=== PATIENT | male | born 1955 | race Caucasian/White ===

== ENCOUNTER 2017-04-16 17:39 | Inpatient (IN) | payer OTHER ==
[~2017-04-16] VITALS: Ht 170.2 cm; Wt 79.8 kg
--- NOTE | 2017-04-16 17:40 | NUR ---
AAOX3, BIB DAUGHTER C/O GENERALIZED WEAKNESS, LOW HGB 7.6, LOSS OF APPETITE, LAST CHEMO WAS 3 WEEKS AGO. 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 SKIN IS WARM AND DRY. PATIENT REFUSED TO USE WHEELCHAIR AND AMBULATES TO ER BED [address]IT[address] JC AT FOR EVAL.
[2017-04-16] MEDS ORDERED: ACETAMINOPHEN ES 500 MG TABLET ONE (18:28)
[2017-04-16] MEDS ORDERED: IV NS 0.9% 500 ML BAG IV ONE ×2 (18:30→20:00)
[2017-04-16] MEDS ORDERED: ACETAMINOPHEN ES 500 MG TABLET PO ONE (18:30)
[2017-04-16 18:34] LABS: BASOPHILS % (AUTO) 0.5 % (0.0-2.0); EOSINOPHILS % (AUTO) 0.2 % (0.0-6.0); HEMATOCRIT 23 % (39-51); HEMOGLOBIN 7.5 g/dL (13.5-17.5); LYMPHOCYTES # (AUTO) 1.2 /CMM (0.8-4.8); LYMPHOCYTES % (AUTO) 18.2 % (20.0-44.0); MEAN CORPUSCULAR HEMOGLOBIN 29 PG (26.0-33.0); MEAN CORPUSCULAR HGB CONC 33 g/dl (31.0-36.0); MEAN CORPUSCULAR VOLUME 88 fL (80-96); MONOCYTES # (AUTO) 1.1 /CMM (0.1-1.30); MONOCYTES % (AUTO) 16.5 % (2.0-12.0); NEUTROPHILS # (AUTO) 4.5 /CMM (1.8-8.9); NEUTROPHILS % (AUTO) 64.6 % (43.0-81.0); PLATELET COUNT (AUTO) 461 /CMM (150-450); RDW COEFFICIENT OF VARIATION 16.3 (11.5-15.0); RED BLOOD CELL COUNT(AUTO) 2.63 MIL/uL (4.5-6.0); WHITE BLOOD COUNT (AUTO) 6.8 K/uL (4.3-11.0)
--- NOTE | 2017-04-16 18:35 | NUR ---
NEW IV STARTED ON RAC, 18 G. BLOOD DRAWN AND SENT TO LAB.
[2017-04-16 18:44] LABS: CALCIUM, SERUM 8.6 mg/dL (8.5-10.1); CARBON DIOXIDE 25 mmol/L (21-32); CHLORIDE 95 mmol/L (98-107); GLUCOSE 175 mg/dL (74-106); SODIUM SERUM 131 mmol/L (136-145); UREA NITROGEN, BLOOD 13 mg/dL (7-18)
[2017-04-16 18:50] LABS: ALANINE AMINOTRANSFERASE 30 U/L (12-78); ALBUMIN 2.2 g/dL (3.4-5.0); ALKALINE PHOSPHATASE 84 U/L (46-116); ASPARTATE AMINOTRANSFERASE 41 U/L (15-37); BILIRUBIN,DIRECT 0.1 mg/dL (0.0-0.2); BILIRUBIN,TOTAL 0.4 mg/dL (0.2-1.0); TOTAL PROTEIN, SERUM 7.1 g/dL (6.4-8.2)
[2017-04-16 18:52] LABS: TROPONIN I < 0.017 ng/mL (0.00-0.056)
[2017-04-16 18:57] LABS: INR 1.13 (0.87-1.13); PROTHROMBIN TIME 11.9 SECS (9.5-12.7)
--- NOTE | 2017-04-16 19:05 | NUR ---
LACTIC ACID 2.7, DR. JC MADE AWARE.
--- NOTE | 2017-04-16 19:15 | NUR ---
URINE OBTAINED AND SENT TO LAB.
--- NOTE | 2017-04-16 19:20 | NUR ---
ENDDORSED TO GRACIA MARCELO FOR MARIO.
[2017-04-16] MEDS ORDERED: PIPERACILLIN /TAZOBACTAM 3.375 G VIAL IV ONE (19:26)
[2017-04-16] MEDS ORDERED: IV NS 0.9% 1,000 ML BAG IV ONE ×2 (19:30→20:00)
[2017-04-16] MEDS ORDERED: PIPERACILLIN /TAZOBACTAM 3.375 G in IV D5W 50 ML IV ONE (19:30)
[2017-04-16 19:33] LABS: APPEARANCE,URINE Clear (CLEAR); BILIRUBIN,URINE Negative (NEGATIVE); BLOOD, URINE Moderate Ery/uL (NEGATIVE); COLOR,URINE Yellow (YELLOW); KETONES,URINE Negative (NEGATIVE); LEUKOCYTE ESTERASE ,URINE Negative (NEGATIVE); NITRITE, URINE Negative (NEGATIVE); PH,URINE 5.5 (5.0-8.0); PROTEIN,URINE >=300 mg/dl (NEGATIVE); UGLUCOSE Negative (NEGATIVE)
--- NOTE | 2017-04-16 19:38 | NUR ---
MEDICATED PT ORDERED
[2017-04-16 19:45] LABS: BACTERIA,URINE Few /HPF (None Seen); WBC,URINE 0-2 /HPF (0-3)
[2017-04-16 19:46] LABS: FINE GRANULAR CASTS,URINE Few /LPF (None Seen); MUCUS,URINE Many /LPF (None Seen); URINE AMORPHOUS URATE Moderate /HPF (None Seen)
[2017-04-16 20:00] VITALS: BP 100/54
--- NOTE | 2017-04-16 20:05 | NUR ---
REPORT GIVEN TO DANUTA
[2017-04-16 21:00] VITALS: BP 100/54
--- NOTE | 2017-04-16 21:00 | NUR ---
RN NOTES NEW ADMISSION FROM ER, MALE, ADMITTED TO TELE WITH DX OF SEPSIS ON UNK ETIOLOGY AND SECONDARY DX OF POSSIBLE DIARRHEAL ILLNESS. ALERT AND ORIENTED X4, NO SOB, NO DISTRESS, LUNG SOUNDS ARE CLEAR, DENIES ANY PAIN AT THIS TIME, ABDOMEN SOFT AND NON-TENDER, ACTIVE BOWEL SOUNDS, RIGHT AC #20 PERIPHERAL LINE IS PATENT AND INTACT. CONTINUED NS BOLUS INFUSION. MALDIVIAN SPEAKING, DAUGHTER TRANSLATES. HAS HX OF LUNG CANCER STAGE 4, METASTASIS TO LEFT ILIAC BONE, PER DAUGHTER PATIENT AWARE WITH DX BUT NOT AWARE OF STAGE 4. DAUGHTER REQUESTED DO NOT DISCLOSE TO PATIENT THE STAGE. HAD WATERY DIARRHEA X5 AT HOME, TOOK IMMODIUM, NO DIARRHEA EPISODE BEFORE GOING TO THE ED. AMBULATES WITH UNSTEADY GAIT, REQUIRES ONE PERSON ASSIST. CONTINENT OF BOWEL AND BLADDER. ORIENTED TO ROOM AND USE OF CALL LIGHT, NEEDS ATTENDED, CALL LIGHT WITHIN REACH, DAUGHTER AT THE BEDSIDE.
--- NOTE | 2017-04-16 21:04 | NUR ---
PT TRANSPORTED TO TELE BED BY RN WITHOUT INCIDENT
[2017-04-16 21:13] LABS: SQUAMOUS EPITHELIAL CELL,UR Moderate /HPF (None Seen)
[2017-04-16] MEDS ORDERED: MAGNESIUM HYDROXIDE 30 ML UDC PO PRN (21:30)
[2017-04-16] MEDS ORDERED: Z GUARD REMEDY 2 OZ OINT TP PRN (21:30)
[2017-04-16] MEDS ORDERED: ACETAMINOPHEN 325 MG TABLET PO PRN (21:30)
[2017-04-16] MEDS ORDERED: MORPHINE SULFATE INJ 2 MG/ML DISP.SYRIN IV PRN (21:30)
[2017-04-16] MEDS ORDERED: HYDROCODONE/APAP 5/325MG 1 EACH TABLET PO PRN (21:30)
[2017-04-16] MEDS ORDERED: DEXTROSE 50%-WATER 50 ML DISP.SYRIN IV PRN (21:30)
[2017-04-16] MEDS ORDERED: ONDANSETRON HCL/PF 4 MG/2 ML VIAL IVP PRN (21:30)
[2017-04-16] MEDS ORDERED: ZOLPIDEM TARTRATE 5 MG TABLET PO PRN (21:30)
[2017-04-16] MEDS ORDERED: MAG HYDROX/AL HYDROX/SIMETH 30 ML UDC PO PRN (21:30)
--- NOTE | 2017-04-16 21:30 | NUR ---
RN NOTES SEEN BY SHANIKA THAKKAR, NO ORDER OF DEXAMETHASONE AT THIS TIME
[2017-04-16] MEDS ORDERED: VANCOMYCIN 1 GM VIAL ONE (21:56)
[2017-04-16] MEDS ORDERED: ENOXAPARIN SODIUM 40 MG/0.4 ML DISP.SYRIN SQ ONE (21:56)
[2017-04-16] MEDS ORDERED: VANCOMYCIN 1 GM in IV D5W 250 ML IV ONE (22:00)
[2017-04-16] MEDS ORDERED: INSULIN REGULAR, HUMAN 100 UNIT/ML 3 ML VIAL ONE (22:10)
[2017-04-16] MEDS: BLOOD SUGAR DIAGNOSTIC 1 EACH STRIP IN SCH (22:11)
[2017-04-16] MEDS: ENOXAPARIN SODIUM 40 MG/0.4 ML DISP.SYRIN SQ SCH (22:38)
[2017-04-16] MEDS: INSULIN REGULAR, HUMAN 100 UNIT/ML 3 ML VIAL SQ PRN (22:39)
[2017-04-16] MEDS: IV NS 0.9% 1,000 ML IV PRN (22:40)
--- NOTE | 2017-04-17 | NUR ---
RN NOTES DAUGHTER REFUSED V/S AT 00:00, PER DAUGHTER, PATIENT JUST FALLEN ASLEEP. EXPLAINED TO DAUGHTER NEED TEMPERATURE TAKEN IF NOT BP, DAUGHTER AGREED. TEMP 98.5F
[2017-04-17] MEDS ORDERED: PIPERACILLIN /TAZOBACTAM 3.375 G VIAL IV ONE ×2 (00:41→04:27)
[2017-04-17] MEDS: PIPERACILLIN /TAZOBACTAM 3.375 G in IV D5W 50 ML IV SCH ×4 (01:04→18:25)
[2017-04-17 04:00] VITALS: BP 112/62
[2017-04-17] MEDS ORDERED: ACETAMINOPHEN 325 MG TABLET ONE (05:52)
[2017-04-17] MEDS ORDERED: MORPHINE SULFATE INJ 4 MG/ML DISP.SYRIN ONE (05:54)
--- NOTE | 2017-04-17 06:08 | NUR ---
RN NOTES COMPLAINING OF PAIN OF 10/10 TO LEFT LEG, GIVEN MORPHINE 4 MG IVP, TEMPERATURE IS 100.2F, GIVEN TYLENOL 650 MG PO, COOLING MEASURES PROVIDED. WILL CONTINUE TO MONITOR
[2017-04-17] MEDS: BLOOD SUGAR DIAGNOSTIC 1 EACH STRIP IN SCH ×4 (06:38→21:21)
[2017-04-17] MEDS: INSULIN REGULAR, HUMAN 100 UNIT/ML 3 ML VIAL SQ PRN ×4 (06:43→21:36)
--- NOTE | 2017-04-17 06:44 | NUR ---
RN NOTES ACCUCHECK 120 MG/DL, INSULIN HELD
[2017-04-17 06:56] LABS: BASOPHILS % (AUTO) 0.2 % (0.0-2.0); EOSINOPHILS # (AUTO) 0.1 /CMM (0.0-0.7); EOSINOPHILS % (AUTO) 1.1 % (0.0-6.0); HEMATOCRIT 21 % (39-51); HEMOGLOBIN 7.3 g/dL (13.5-17.5); LYMPHOCYTES # (AUTO) 1.3 /CMM (0.8-4.8); LYMPHOCYTES % (AUTO) 26.2 % (20.0-44.0); MEAN CORPUSCULAR HEMOGLOBIN 30 PG (26.0-33.0); MEAN CORPUSCULAR HGB CONC 35 g/dl (31.0-36.0); MEAN CORPUSCULAR VOLUME 88 fL (80-96); MONOCYTES # (AUTO) 0.9 /CMM (0.1-1.30); MONOCYTES % (AUTO) 17.3 % (2.0-12.0); NEUTROPHILS # (AUTO) 2.8 /CMM (1.8-8.9); NEUTROPHILS % (AUTO) 55.2 % (43.0-81.0); PLATELET COUNT (AUTO) 347 /CMM (150-450); RDW COEFFICIENT OF VARIATION 16.9 (11.5-15.0)
--- NOTE | 2017-04-17 07:08 | NUR ---
RN NOTES PATIENT IS ALERT AND AWAKE, NO SOB, NO DISTRESS, COMPLAINED OF PAIN TO LEFT LEG, GIVEN MORPHINE, TEMPERATURE OF 100.2F, GIVEN TYLENOL 650 MG PO, TEMPERATURE TAKEN AT 0630 98.9F, RIGHT AC PERIPHERAL LINE IS PATENT AND INFUSING WELL, ALL DUE MEDICATIONS GIVEN, NEEDS ATTENDED, CALL LIGHT WITHIN REACH. DAUGHTER AT THE BEDSIDE.
[2017-04-17 07:22] LABS: CREATININE 0.9 mg/dL (0.6-1.3); MAGNESIUM 1.4 mg/dL (1.8-2.4); PHOSPHORUS 3.1 mg/dL (2.5-4.9); POTASSIUM 3.8 mmol/L (3.5-5.1)
[2017-04-17 08:00] VITALS: BP_SYST 118; BP_SYST 95; BP_DIAS 52; BP_DIAS 70
--- NOTE | 2017-04-17 08:00 | NUR ---
RN MS NOTES PT IN BED, AWAKE, ALERT AND ORIENTED, NO COMPLAINT OF PAIN, BREATHING PATTERN NORMAL AND NOT LABORED, IV FLUIDS INFUSING WELL, DAUGHTER CATIA AT BEDSIDE, CALL LIGHT WITHIN REACH, NEEDS ATTENDED.
[2017-04-17 08:24] LABS: EOSINOPHILS % (MANUAL) 2 % (0-4); LYMPHOCYTES % (MANUAL) 27 % (16-48); MONOCYTES % (MANUAL) 16 % (0-11.0); NEUTROPHILS % (MANUAL) 55 (42-76)
[2017-04-17] MEDS ORDERED: METF10002 PO (08:24)
[2017-04-17] MEDS ORDERED: ATOR80TA PO (08:24)
[2017-04-17] MEDS ORDERED: GABA-534 PO (08:24)
[2017-04-17] MEDS ORDERED: ATEN25TA PO (08:24)
[2017-04-17] MEDS ORDERED: FEE PK DOSING 1 MIN EA MC ONE (08:30)
[2017-04-17] MEDS ORDERED: PANTOPRAZOLE 40 MG VIAL IV SCH (09:00)
[2017-04-17] MEDS: Magnesium 1GM/D5W 100ML PREMIX 100 ML IV SCH ×4 (10:13→18:59)
[2017-04-17] MEDS ORDERED: Magnesium 1GM/D5W 100ML PREMIX 100 ML IV SCH (10:30)
[2017-04-17] MEDS: VANCOMYCIN 1.25 GM in IV D5W 500 ML IV SCH ×2 (11:20→21:20)
--- NOTE | 2017-04-17 15:04 | NUR ---
RN MS NOTES PT SEEN BY DR. OLIVA, PLAN OF CARE DISCUSSED WITH PT AND FAMILY, VERBALIZED UNDERSTANDING, CALL LIGHT PLACED WITHIN REACH, PT SEEN BY PT, ABLE TO AMBULATE ALONG THE HALLWAY, TOLERATED WELL, KEPT COMFORTABLE.
--- NOTE | 2017-04-17 15:58 | NUR ---
RN MS NOTES PER DR. MOREIRA, CONTINUE ALL HOME MEDS, NOTED AND CARRIED OUT.
[2017-04-17 16:00] VITALS: BP 136/68
[2017-04-17] MEDS: GABAPENTIN 300 MG CAPSULE PO SCH (16:55)
[2017-04-17] MEDS: METFORMIN 500 MG TABLET PO SCH (16:56)
[2017-04-17] MEDS: ATENOLOL 25 MG TABLET PO SCH (16:57)
--- NOTE | 2017-04-17 18:19 | NUR ---
RN MS NOTES PT IN BED, AWAKE, ALERT AND ORIENTED, FAMILY AT BEDSIDE, NO COMPLAINT OF PAIN, NOT IN DISTRESS, ASSISTED TO BATHROOM NEEDED, NO BM THIS SHIFT, IV FLUIDS INFUSING WELL, BLOOD SUGAR CHECKED, INSULIN GIVEN PER SLIDING SCALE ORDERED, ALL NEEDS ATTENDED.
--- NOTE | 2017-04-17 19:05 | NUR ---
MS RN OPENING NOTES: PT IS IN BED, AWAKE, A/OX4. 2 FAMILY MEMBERS AT BEDSIDE. NO COMPLAINTS OF PAIN AT THIS MOMENT. NO S/S OF DYSTRESS. LAST BAG OF MAGNESIUM BEING INFUSED ON R AC#18G. CALL LIGHT WITHIN PT'S REACH. BED KEPT IN LOW, LOCKED POSITION, AND SIDE RAILS X 2 UP. WILL CONTINUE TO MONITOR PT.
[2017-04-17 20:00] VITALS: BP 104/57
[2017-04-17] MEDS: IV NS 0.9% 1,000 ML IV PRN (20:43)
[2017-04-17] MEDS: ATORVASTATIN 40 MG TABLET PO SCH (21:20)
[2017-04-17] MEDS: ENOXAPARIN SODIUM 40 MG/0.4 ML DISP.SYRIN SQ SCH (21:21)
--- NOTE | 2017-04-17 21:36 | NUR ---
MS RN NOTES: BLOOD SUGAR WAS 221. 4 UNITS OF INSULIN WAS ADMINISTERED. WILL CONTINUE TO MONITOR PT.
[2017-04-18] MEDS: PIPERACILLIN /TAZOBACTAM 3.375 G in IV D5W 50 ML IV SCH ×4 (00:10→17:32)
[2017-04-18] MEDS: BLOOD SUGAR DIAGNOSTIC 1 EACH STRIP IN SCH ×4 (06:16→21:28)
[2017-04-18] MEDS: INSULIN REGULAR, HUMAN 100 UNIT/ML 3 ML VIAL SQ PRN ×4 (06:48→21:29)
--- NOTE | 2017-04-18 06:53 | NUR ---
MS RN NOTES: BLOOD SUGAR WAS 165 THIS AM. 3 UNITS OF INSULIN WAS ADMINISTERED. WILL CONTINUE TO MONITOR PT.
[2017-04-18 07:02] LABS: BASOPHILS % (AUTO) 0.5 % (0.0-2.0); EOSINOPHILS # (AUTO) 0.1 /CMM (0.0-0.7); EOSINOPHILS % (AUTO) 1.3 % (0.0-6.0); HEMATOCRIT 21 % (39-51); HEMOGLOBIN 7.2 g/dL (13.5-17.5); LYMPHOCYTES # (AUTO) 1.8 /CMM (0.8-4.8); LYMPHOCYTES % (AUTO) 33.1 % (20.0-44.0); MEAN CORPUSCULAR HEMOGLOBIN 30 PG (26.0-33.0); MEAN CORPUSCULAR HGB CONC 34 g/dl (31.0-36.0); MEAN CORPUSCULAR VOLUME 88 fL (80-96); MONOCYTES # (AUTO) 0.8 /CMM (0.1-1.30); MONOCYTES % (AUTO) 14.2 % (2.0-12.0); NEUTROPHILS # (AUTO) 2.7 /CMM (1.8-8.9); NEUTROPHILS % (AUTO) 50.9 % (43.0-81.0); PLATELET COUNT (AUTO) 360 /CMM (150-450); RDW COEFFICIENT OF VARIATION 17.5 (11.5-15.0); RED BLOOD CELL COUNT(AUTO) 2.42 MIL/uL (4.5-6.0); WHITE BLOOD COUNT (AUTO) 5.4 K/uL (4.3-11.0)
--- NOTE | 2017-04-18 07:30 | NUR ---
MS RN CLOSING NOTES: ALL NEEDS WERE ATTENDED AND ANTICIPATED FOR. PT IS IN BED ASLEEP AND RESTING. PT IS A/OX4. NO S/S IF DISTRESS NOTED AT THIS TIME. PT HAS IV ON R AC #18G AND IS BEING INFUSED WITH NS AT 75ML/HR. CALL LIGHT WITHIN PT'S REACH. BED KEPT IN LOW, LOCKED POSITION, AND SIDE RAILS X 2 UP. ENDORSED TO AM NURSE FOR MARIO.
[2017-04-18 07:48] LABS: CALCIUM, SERUM 8.1 mg/dL (8.5-10.1); CREATININE 0.8 mg/dL (0.6-1.3); PHOSPHORUS 2.6 mg/dL (2.5-4.9); POTASSIUM 3.6 mmol/L (3.5-5.1)
--- NOTE | 2017-04-18 08:00 | NUR ---
AM RN NOTES RECEIVED PT IN BED, RESTING COMFORTABLY NO SOB OR DISTRESS NOTED, NO PAIN OR DISCOMFORT, WILL MONITOR.
[2017-04-18] MEDS: FAMOTIDINE/PF INJ 20 MG/2 ML VIAL IV SCH ×2 (08:28→21:30)
[2017-04-18] MEDS: ATENOLOL 25 MG TABLET PO SCH (08:29)
[2017-04-18] MEDS: GABAPENTIN 300 MG CAPSULE PO SCH ×3 (08:29→16:23)
[2017-04-18] MEDS: METFORMIN 500 MG TABLET PO SCH ×2 (08:29→16:23)
[2017-04-18 09:15] VITALS: BP 138/71
[2017-04-18] MEDS ORDERED: MORPHINE SULFATE INJ 4 MG/ML DISP.SYRIN IV PRN (10:00)
[2017-04-18] MEDS ORDERED: MORPHINE SULFATE INJ 2 MG/ML DISP.SYRIN IV PRN (10:00)
[2017-04-18] MEDS: VANCOMYCIN 1.25 GM in IV D5W 500 ML IV SCH ×2 (10:42→21:31)
[2017-04-18 16:00] VITALS: BP 134/73
[2017-04-18 17:10] VITALS: BP 134/73
--- NOTE | 2017-04-18 18:52 | NUR ---
PT IN STABLE CONDITION, NO CHEST PAIN OR DISCOMFORT NOTED, UNABLE TO COLLECT STOOL FOR OB, WILL INDORSE TO NEXT SHIFT FOR MARIO.
--- NOTE | 2017-04-18 19:05 | NUR ---
RN OPEN NOTES RECEIVED PATIENT AWAKE IN BED WITH FAMILY AT BEDSIDE. A/O X4. NO SIGNS OF DISTRESS OR DISCOMFORT. BREATHING EVEN AND UNLABORED. IV ACCESS IN RAC WITH NS INFUSING, PATENT AND INTACT, NO SIGNS OF REDNESS OR INFILTRATION. BED IN LOW LOCKED POSITION WITH SIDE RAILS X2. CALL LIGHT WITHIN REACH. WILL CONTINUE TO MONITOR.
[2017-04-18 20:00] VITALS: BP 156/82
[2017-04-18] MEDS: ENOXAPARIN SODIUM 40 MG/0.4 ML DISP.SYRIN SQ SCH (21:30)
[2017-04-18] MEDS: IV NS 0.9% 1,000 ML IV PRN (21:31)
[2017-04-18] MEDS: ATORVASTATIN 40 MG TABLET PO SCH (21:31)
[2017-04-19] MEDS: PIPERACILLIN /TAZOBACTAM 3.375 G in IV D5W 50 ML IV SCH ×3 (00:05→12:14)
[2017-04-19] MEDS: BLOOD SUGAR DIAGNOSTIC 1 EACH STRIP IN SCH ×2 (06:12→11:44)
[2017-04-19] MEDS: INSULIN REGULAR, HUMAN 100 UNIT/ML 3 ML VIAL SQ PRN ×2 (06:14→11:49)
--- NOTE | 2017-04-19 06:59 | NUR ---
RN CLOSING NOTES PATIENT RESTING IN BED. A/O X4. NO SIGNS OF DISTRESS OR DISCOMFORT. BREATHING EVEN AND UNLABORED. IV ACCESS IN RAC WITH NS INFUSING, PATENT AND INTACT, NO SIGNS OF REDNESS OR INFILTRATION. ALL NEEDS MET. NO SIGNIFICANT CHANGES THROUGH THE NIGHT. BED IN LOW LOCKED POSITION WITH SIDE RAILS X2. CALL LIGHT WITHIN REACH. WILL ENDORSE TO AM SHIFT FOR MARIO.
--- NOTE | 2017-04-19 07:54 | NUR ---
RN MS NOTES PATIENT IN BED ASLEEP, BUT EASILY AROUSABLE, DENIES PAIN OR DISCOMFORT NOTED, PIV PATENT AND FLUSHES WELL WITH IVF INFUSING AND TOLERATING WELL, NEEDS ATTENDED AND ANTICIPATED, SAFETY MEASURES IN PLACED, CALL LIGHT WITHIN REACH, WILL CONTINUE TO MONITOR.
[2017-04-19 08:00] VITALS: BP 121/68
[2017-04-19 08:05] LABS: BASOPHILS % (AUTO) 0.3 % (0.0-2.0); EOSINOPHILS # (AUTO) 0.1 /CMM (0.0-0.7); HEMATOCRIT 21 % (39-51); HEMOGLOBIN 7.2 g/dL (13.5-17.5); LYMPHOCYTES # (AUTO) 1.6 /CMM (0.8-4.8); LYMPHOCYTES % (AUTO) 28.6 % (20.0-44.0); MEAN CORPUSCULAR HEMOGLOBIN 30 PG (26.0-33.0); MEAN CORPUSCULAR HGB CONC 34 g/dl (31.0-36.0); MEAN CORPUSCULAR VOLUME 88 fL (80-96); MONOCYTES # (AUTO) 0.8 /CMM (0.1-1.30); MONOCYTES % (AUTO) 13.5 % (2.0-12.0); NEUTROPHILS # (AUTO) 3.2 /CMM (1.8-8.9); NEUTROPHILS % (AUTO) 56.6 % (43.0-81.0); PLATELET COUNT (AUTO) 349 /CMM (150-450); RDW COEFFICIENT OF VARIATION 17.1 (11.5-15.0); RED BLOOD CELL COUNT(AUTO) 2.42 MIL/uL (4.5-6.0); WHITE BLOOD COUNT (AUTO) 5.6 K/uL (4.3-11.0)
[2017-04-19 08:26] LABS: CALCIUM, SERUM 8.1 mg/dL (8.5-10.1); CREATININE 0.9 mg/dL (0.6-1.3); MAGNESIUM 1.6 mg/dL (1.8-2.4); PHOSPHORUS 2.8 mg/dL (2.5-4.9); POTASSIUM 3.7 mmol/L (3.5-5.1)
[2017-04-19] MEDS: FAMOTIDINE/PF INJ 20 MG/2 ML VIAL IV SCH (08:45)
[2017-04-19] MEDS: METFORMIN 500 MG TABLET PO SCH (08:48)
[2017-04-19] MEDS: GABAPENTIN 300 MG CAPSULE PO SCH ×2 (08:48→12:53)
[2017-04-19 08:52] VITALS: BP 121/68
[2017-04-19] MEDS: ATENOLOL 25 MG TABLET PO SCH (08:52)
[2017-04-19] MEDS: VANCOMYCIN 1.25 GM in IV D5W 500 ML IV SCH (09:35)
[2017-04-19] MEDS: Magnesium 1GM/D5W 100ML PREMIX 100 ML IV SCH ×2 (12:54→14:04)
[2017-04-19] MEDS ORDERED: LEVO750T46 PO (13:36)
--- NOTE | 2017-04-19 14:22 | NUR ---
RN MS NOTES RECEIVED DISCHARGE ORDER FROM JORDAN VOSS, ORDER NOTED AND CARRIED OUT, PATIENT ASLEEP AT THIS TIME, RESTING COMFORTABLY, NO DISTRESS NOTED, CALL LIGHT WITHIN REACH, WILL CONTINUE TO MONITOR.
--- NOTE | 2017-04-19 16:40 | NUR ---
RN MS NOTES PATIENT ALERT AND ORIENTED, NO DISTRESS NOTED, RECEIVED DISCHARGE INSTRUCTIONS AND VERBALIZED UNDERSTANDING, SKIN ASSESSMENT COMPLETED, SKIN INTACT, BELONGINGS RECONCILED AND COMPLETED, DAUGHTER CATIA AWARE OF DISCHARGE, ALL DUE MEDICATIONS ADMINISTERED, DAUGHTER WILL ROLLS BAKER THE DISCHARGE PAPERWORKS, PER HER REQUEST, LEFT AT THE NURSES STATION, PATIENT WILL BE PICKED UP BY FAMILY MEMBER. PIV REMOVED. WILL CONTINUE TO MONITOR.
--- NOTE | 2017-04-19 16:54 | NUR ---
DIRECTOR OF SPECIAL EVENTS PATIENT LEFT THE FACILITY ACCOMPANIED BY COUSIN, PRESCRIPTION PROVIDED TO THE PATIENT, PATIENT ABLE TO AMBULATE TO THE CAR WITH STEADY GAIT, NO DISTRESS NOTED.
== END 2017-04-19 16:50 | disposition home or self-care (01) | DRG 720 ==
LOC: ER 17:44 → TELE 20:12 → MED 04-17 09:51
PROVIDERS: ADMIT Nurse Practitioner Acute Care; ATTEND Nurse Practitioner Acute Care
DX: A41.9 Sepsis, unspecified organism (principal); E87.2 Acidosis; C79.51 Secondary malignant neoplasm of bone; E11.69 Type 2 diabetes mellitus with other specified complication; C34.90 Malignant neoplasm of unspecified part of unspecified bronchus or lung; D64.81 Anemia due to antineoplastic chemotherapy; E87.1 Hypo-osmolality and hyponatremia; E86.1 Hypovolemia; T45.1X5A Adverse effect of antineoplastic and immunosuppressive drugs, initial encounter; Z92.3 Personal history of irradiation; Z87.891 Personal history of nicotine dependence; Z85.118 Personal history of other malignant neoplasm of bronchus and lung; Z82.49 Family history of ischemic heart disease and other diseases of the circulatory system; K21.9 Gastro-esophageal reflux disease without esophagitis; I52 Other heart disorders in diseases classified elsewhere; I10 Essential (primary) hypertension; D63.8 Anemia in other chronic diseases classified elsewhere; B34.9 Viral infection, unspecified; K52.9 Noninfective gastroenteritis and colitis, unspecified
CPT/HCPCS: 36415; 71010-TC; 71250-TC; 80048-TC; 80061-TC; 80076-TC; 80202-TC; 81000-TC; 82728-TC; 82746; 82962-TC; 83540-TC; 83605-TC; 83735-TC; 84100-TC; 84484-TC; 85025-TC; 85730-TC; 86850-TC; 87040-TC; 87081-TC; 87086-TC; 87400; 93307-TC; A4606; C9113; J1650; J1815; J2270; J2543; J3370; J3475; J3490; J7030; J7040; J7060; Z7610

== ENCOUNTER 2019-05-29 19:08 | Emergency (ER) | payer OTHER ==
[~2019-05-29] VITALS: Ht 172.7 cm; Wt 89.4 kg
[~2019-05-29 19:08] MED LIST: ATEN25TA PO; ATOR80TA PO; GABA-534 PO; LEVO750T46 PO; METF-442 PO
--- NOTE | 2019-05-29 19:30 | NUR ---
BIBSELF WITH FAMILY FROM HOME. TO ER BED 9. AAOX4. NO RESP DISTRESS NOTED. AMBULATORY. C/O RECTAL PROLAPSE. PT REPORTS THAT HE NOTED THAT THERE IS A RED MASS COMING OUT OF HIS RECTUM STARTING TUESDAY. PT REPORTS THAT IT IS PAINFUL WHEN THE MASS IS TOUCHING SOMETHING AND PT CANT SIT ON IT. NO PAIN WHEN NO PRESSURE. AWAITING MD FOR EVAL.
--- NOTE | 2019-05-29 20:29 | NUR ---
Patient discharged to home in stable condition. Written and verbal after care instructions given. Patient verbalizes understanding of instruction. Pt ambulatory with a steady gait
[2019-05-29 20:32] VITALS: BP 148/72
== END 2019-05-29 20:32 | disposition home or self-care (01) ==
LOC: ER 19:13
DX: K62.3 Rectal prolapse (principal); K61.1 Rectal abscess; I10 Essential (primary) hypertension; E11.9 Type 2 diabetes mellitus without complications; K21.9 Gastro-esophageal reflux disease without esophagitis; F17.200 Nicotine dependence, unspecified, uncomplicated; Z85.118 Personal history of other malignant neoplasm of bronchus and lung